=== PATIENT | female | born 1965 | race Caucasian/White ===

== ENCOUNTER 2023-01-28 05:20 | Inpatient (IN) | payer BC ==
[~2023-01-28] VITALS: Ht 170.2 cm; Wt 120.2 kg
[2023-01-28] MEDS ORDERED: ONDANSETRON 4 MG ODT TAB PO ONE (06:30)
[2023-01-28] MEDS ORDERED: oxyCODONE HCL 10 MG TAB.ER.12H PO ONE ×2 (06:30→07:14)
[2023-01-28] MEDS ORDERED: CELECOXIB 200 MG CAPSULE PO ONE (06:30)
[2023-01-28] MEDS ORDERED: SCOPOLAMINE HYDROBROMIDE 1 MG PATCH .72 H (TRANSDERM-SCOP) TD ONE (06:30)
[2023-01-28] MEDS ORDERED: ACETAMINOPHEN 500 MG TABLET PO ONE (06:30)
[2023-01-28] MEDS ORDERED: GABAPENTIN 400 MG CAPSULE PO ONE (06:30)
[2023-01-28] MEDS ORDERED: CEFAZOLIN SOD 1 GM in D5W 50 ML IV ONE (06:45)
[2023-01-28] MEDS: LR 1,000 ML IV SCH ×2 (06:45→16:45)
[2023-01-28] MEDS ORDERED: VANCOMYCIN HCL IV ONE (07:00)
[2023-01-28] MEDS ORDERED: NS IV ONE (07:00)
[2023-01-28] MEDS ORDERED: NS IRRIG SOLN 1000 ML IR ONE (07:35)
[2023-01-28] MEDS ORDERED: TRANEXAMIC ACID 1,000 MG/10 ML VIAL ONE (07:35)
[2023-01-28] MEDS ORDERED: KETOROLAC TROMETHAMINE 30 MG VIAL ONE (07:35)
[2023-01-28] MEDS ORDERED: BUPIVACAINE /PF 0.75% 10 ML VIAL INJ ONE (07:35)
[2023-01-28] MEDS ORDERED: SEVOFLURANE 15 MIN GAS INH ONE (07:35)
[2023-01-28] MEDS ORDERED: WATER FOR IRRIGATION,STERILE 1,000 ML IRRIG.SOLN IR ONE (07:35)
[2023-01-28] MEDS ORDERED: ROPIVACAINE HCL/PF 5 MG/ML 0.5% 30 ML VIAL ONE (07:35)
[2023-01-28] MEDS ORDERED: fentaNYL CITRATE/PF 100 MCG/2 ML AMP ONE (07:35)
[2023-01-28] MEDS ORDERED: VANCOMYCIN HCL 1000 MG/VIAL IV ONE (07:35)
[2023-01-28] MEDS ORDERED: MIDAZOLAM HCL 2 MG/2 ML VIAL (VERSED) ONE (07:35)
[2023-01-28] MEDS ORDERED: LR 1,000 ML IV.SOLN IV ONE (07:35)
[2023-01-28] MEDS ORDERED: EPINEPHrine HCL 1 MG/ML VIAL ONE (07:35)
[2023-01-28] MEDS ORDERED: DEXAMETHASONE SOD PHOSPHATE 4 MG/ML VIAL ONE (07:35)
[2023-01-28] MEDS ORDERED: NS 1000 ML IV.SOLN IV ONE (07:35)
[2023-01-28] MEDS ORDERED: ONDANSETRON HCL 4 MG/2 ML VIAL ONE (07:35)
[2023-01-28] MEDS ORDERED: HYDROmorphone 1 MG/ML INJ. CARTRIDGE IVP PRN ×4 (08:45→14:00)
[2023-01-28] MEDS ORDERED: ONDANSETRON HCL 4 MG/2 ML VIAL IVP PRN ×2 (08:45→14:00)
[2023-01-28] MEDS ORDERED: METOCLOPRAMIDE HCL 10 MG/2 ML VIAL IVP PRN ×2 (08:45→12:00)
[2023-01-28] MEDS ORDERED: LR 1,000 ML IV SCH (08:45)
[2023-01-28] MEDS ORDERED: NAPR-1172 PO (09:01)
[2023-01-28] MEDS ORDERED: LORATADINE 10 MG TABLET PO PRN (11:00)
[2023-01-28] MEDS ORDERED: BISACODYL 10 MG/SUPPOSITORY RC PRN (12:00)
[2023-01-28] MEDS ORDERED: DIPHENHYDRAMINE HCL 25 MG CAPSULE PO PRN (12:00)
[2023-01-28] MEDS ORDERED: LACTULOSE 20 GM/30 ML UDC PO PRN (12:00)
[2023-01-28] MEDS ORDERED: NALOXONE HCL 0.4 MG/ML AMP (NARCAN) IVP PRN ×3 (12:00)
[2023-01-28] MEDS ORDERED: HYDROmorphone 1 MG/ML INJ. CARTRIDGE ONE (12:24)
[2023-01-28 12:45] VITALS: BP_SYST 134
[2023-01-28] MEDS: ACETAMINOPHEN 500 MG TABLET PO SCH ×2 (13:44→22:08)
[2023-01-28] MEDS: KETOROLAC TROMETHAMINE 10 MG TABLET (TORADOL) PO SCH ×2 (13:45→22:07)
[2023-01-28] MEDS ORDERED: traMADol HCL HCL 50 MG TABLET (ULTRAM) PO PRN (14:00)
[2023-01-28] MEDS ORDERED: oxyCODONE HCL 5 MG TABLET PO PRN ×2 (14:00)
[2023-01-28] MEDS: ceFAZolin SODIUM 2 GM in D5W 50 ML IV SCH ×2 (14:02→22:08)
[2023-01-28 16:05] VITALS: BP_SYST 136
[2023-01-28] MEDS: SENNOSIDES/DOCUSATE SODIUM 1 TAB TABLET(SENOKOT-S) PO SCH (22:07)
[2023-01-29 00:51] VITALS: BP_SYST 121
[2023-01-29 05:36] LABS: BASOPHILS % (AUTO) 0.2 % (0.0-2.0); EOSINOPHILS % (AUTO) 0.3 % (0.0-4.0); HEMATOCRIT 34.3 % (36-48); HEMOGLOBIN 11.2 g/dL (12.0-16.0); LYMPHOCYTES # (AUTO) 1.9 K/uL (1.0-5.5); LYMPHOCYTES % (AUTO) 12.6 % (20.5-51.5); MEAN CORPUSCULAR HEMOGLOBIN 29 pg (27-31); MEAN CORPUSCULAR HGB CONC 33 % (32-36); MEAN CORPUSCULAR VOLUME 89 fL (79.0-98.0); MONOCYTES # (AUTO) 1.2 K/uL (0.0-1.0); MONOCYTES % (AUTO) 7.8 % (1.7-9.3); NEUTROPHILS # (AUTO) 11.8 K/uL (1.8-7.7); NEUTROPHILS % (AUTO) 79.1 % (40.0-70.0); PLATELET COUNT (AUTO) 207 K/uL (130-430); RED BLOOD CELL COUNT(AUTO) 3.86 MIL/uL (4.2-6.2); RED CELL DISTRIBUTION WIDTH 14.1 % (9.0-15.0); WHITE BLOOD COUNT (AUTO) 14.9 K/uL (4.8-10.8)
[2023-01-29] MEDS: KETOROLAC TROMETHAMINE 10 MG TABLET (TORADOL) PO SCH (06:21)
[2023-01-29] MEDS: ACETAMINOPHEN 500 MG TABLET PO SCH (06:21)
[2023-01-29] MEDS: ceFAZolin SODIUM 2 GM in D5W 50 ML IV SCH (06:21)
[2023-01-29 06:32] LABS: ALBUMIN 2.7 g/dL (3.4-4.8); CALCIUM 7.9 mg/dL (8.4-11.0); CREATININE 0.83 mg/dL (0.55-1.30); TOTAL BILIRUBIN 0.4 mg/dL (0.0-1.0)
[2023-01-29 08:20] VITALS: BP_SYST 122
[2023-01-29] MEDS ORDERED: ASPIRIN 81 MG TAB.CHEW PO SCH (09:00)
[2023-01-29 10:10] VITALS: BP_SYST 122
[2023-01-29] MEDS: SENNOSIDES/DOCUSATE SODIUM 1 TAB TABLET(SENOKOT-S) PO SCH (10:40)
[2023-01-29] MEDS ORDERED: CELECOXIB 200 MG CAPSULE PO SCH (11:00)
[2023-01-29 11:34] VITALS: BP_SYST 112
== END 2023-01-29 11:45 | disposition home or self-care (01) | DRG 468 ==
LOC: SMU 05:20
PROVIDERS: ADMIT Orthopaedic Surgery; ATTEND Orthopaedic Surgery
PROC: 0SWB0JZ Revision of Synthetic Substitute in Left Hip Joint, Open Approach (ICD-10-PCS; principal; 2023-01-28 07:42)
DX: T84.031A Mechanical loosening of internal left hip prosthetic joint, initial encounter (principal); Y83.8 Other surgical procedures as the cause of abnormal reaction of the patient, or of later complication, without mention of misadventure at the time of the procedure; Y92.89 Other specified places as the place of occurrence of the external cause
CPT/HCPCS: 36415; 72170-TC; 73501; 80053; 85025; 86886; 86900; 86901; 87070-TC; 87075-TC; 87081; 87101; 88304; 96379; 97110-GP; 97116-GP; 97530-GP; J0171; J0690; J1100; J1170; J1885; J2405; J3010; J3370; J3465; J3490; J7030; J7040; J7050; J7060; J7120; Q0162

== ENCOUNTER 2023-10-18 17:19 | Emergency (ER) | payer BC ==
[~2023-10-18] VITALS: Ht 167.6 cm; Wt 108.9 kg
[~2023-10-18 17:19] MED LIST: NAPR-1172 PO
[2023-10-18 17:25] VITALS: BP_SYST 163; PULSE 69; RESP 19; TEMP 97.8; O2SAT 97
[2023-10-18 21:20] VITALS: BP_SYST 163; PULSE 69; RESP 19; TEMP 97.8; O2SAT 97
== END 2023-10-18 21:19 | disposition home or self-care (01) ==
LOC: SED 17:19
DX: S00.03XA Contusion of scalp, initial encounter (principal); M25.551 Pain in right hip; M25.562 Pain in left knee; Z79.899 Other long term (current) drug therapy; W22.8XXA Striking against or struck by other objects, initial encounter; Y93.89 Activity, other specified; Y92.89 Other specified places as the place of occurrence of the external cause; Y99.8 Other external cause status
CPT/HCPCS: 70450-TC; 73502; 76376; 99284